=== PATIENT | male | born 1985 | race Caucasian/White ===

== ENCOUNTER 2018-07-22 08:32 | Emergency (ER) | payer BC ==
[~2018-07-22] VITALS: Ht 182.9 cm; Wt 92.5 kg
[2018-07-22 08:34] VITALS: Ht 182.9 cm; Wt 92.5 kg
[2018-07-22 09:46] VITALS: BP 135/69
== END 2018-07-22 09:48 | disposition home or self-care (01) ==
LOC: ED 08:32
DX: S61.216A Laceration without foreign body of right little finger without damage to nail, initial encounter (principal); F41.9 Anxiety disorder, unspecified; F32.9 Major depressive disorder, single episode, unspecified; W26.0XXA Contact with knife, initial encounter; Y93.89 Activity, other specified; Y92.89 Other specified places as the place of occurrence of the external cause; Y99.8 Other external cause status
CPT/HCPCS: 90715; J2001